=== PATIENT | female | born 1960 | race Two or more races ===

== ENCOUNTER 2018-07-22 11:41 | Emergency (ER) | payer OTHER ==
[~2018-07-22] VITALS: Ht 160 cm; Wt 65.8 kg
[2018-07-22] MEDS ORDERED: HYDROCHLOROTH12.5 M1 PO (12:07)
[2018-07-22] MEDS ORDERED: TOPROL XL50 M1 (12:07)
[2018-07-22] MEDS ORDERED: ZITHROMAX TRI-500 MG PO ×2 (13:56→13:58)
[2018-07-22] MEDS ORDERED: TESSALON PERLE100 MG PO ×2 (13:56→13:58)
[2018-07-22] MEDS ORDERED: PROMETHAZINE W118 ML PO (13:56)
== END 2018-07-22 14:48 | disposition home or self-care (01) ==
LOC: ER 11:41
DX: B33.8 Other specified viral diseases (principal)

== ENCOUNTER 2019-02-03 10:18 | Emergency (ER) | payer OTHER ==
[~2019-02-03] VITALS: Ht 157.5 cm; Wt 72.1 kg
[~2019-02-03 10:18] MED LIST: HYDROCHLOROTH12.5 M1 PO; PROMETHAZINE W118 ML PO; TESSALON PERLE100 MG PO; TOPROL XL50 M1; ZITHROMAX TRI-500 MG PO
[2019-02-03] MEDS ORDERED: ZITHROMAX500 MG PO ×2 (13:01→13:04)
[2019-02-03] MEDS ORDERED: TUSSIONEX PENN115 ML PO ×2 (13:01→13:04)
== END 2019-02-03 13:00 | disposition home or self-care (01) ==
LOC: ER 10:18
DX: B96.0 Mycoplasma pneumoniae [M. pneumoniae] as the cause of diseases classified elsewhere (principal)